=== PATIENT | male | born 1990 | race African-American/Black ===

== ENCOUNTER 2023-07-28 09:06 | Outpatient (CLI) | payer OTHER ==
[2023-07-28 09:27] LABS: PLATELET COUNT 421 K/uL (142-355)
[2023-07-28 09:46] LABS: POTASSIUM 3.7 mmol/L (3.6-5.2)
== END 2023-07-28 18:54 | disposition home or self-care (01) ==
LOC: LABW 09:06
PROVIDERS: ATTEND Obstetrics & Gynecology Obstetrics
DX: E88.810 Metabolic syndrome (principal); E16.1 Other hypoglycemia
CPT/HCPCS: 36415; 80053; 80061; 81002; 83036; 83525; 84550; 85027